=== PATIENT | male | born 1935 | race Caucasian/White ===

== ENCOUNTER → 2016-12-13 | Outpatient (CLI) | payer OTHER ==
[~2016-12-13] MED LIST: ACETAMINOPHEN PO; ALDACTAZIDE PO; AMLODIPINE BES2.5 MG PO; ASPIRIN PO; ASPIRIN81 M2 PO; ASPIRINEC PO; ATENOLOL PO; ATENOLOL50 MG PO; COUMADIN2.5 MG PO; COUMADIN5 MG PO; DIOVAN PO; DIOVAN160 MG PO; FLOMAX0.4 M1; FLOMAX0.4 M1 PO; GABAPENTIN300 MG PO; GRALISE300 MG PO; IMDUR PO; IMDUR-ER30 MG PO; IMDUR30 MG; IMDUR30 MG PO; ISORDIL PO; ISORDIL40 MG PO; KEFLEX PO; LANSOPRAZOLE30 M2 PO; LIPITOR PO; LIPITOR20 MG PO; LIPITOR40 MG PO; LOMOTIL WHITE2.5 MG PO; LOPERAMIDE HCL2 M1 PO; METOPROLOL SUCC25 MG PO; METOPROLOL TAR25 MG PO; MYRBETRIQ25 MG PO; NEURONTIN300 MG PO; NITROGLYGERIN0.4 MG SL; NITROGYLCERIN SUBLINGUAL; NORCO1 TAB 10/3 PO; NORVASC PO; NORVASC2.5 MG PO; OMEPRAZOLE40 M1 PO; OMEPRAZOLE40 MG PO; PHENERGAN25 MG PO; PLAVIX PO; PRILOSEC PO; PRILOSEC40 MG; PROTONIX PO; RANEXA500 MG PO; TESSALON PERLE100 M1 PO
--- NOTE | ~2016-12-13 | EKG ---
PATIENT: SUDHEER DAN UNIT #: [id number] Ventricular Rate: 52 BPM Atrial Rate: 52 BPM P-R Interval: 258 ms QRS Duration: 86 ms Q-T Interval: 476 ms QTC Calculation(Bezet): 442 ms P [place]: 76 degrees Calculated R [place]: 28 degrees Calculated T [place]: 57 degrees Diagnosis Line: Sinus bradycardia with 1st degree A-V block Diagnosis Line: Otherwise normal ECG Diagnosis Line: When compared with ECG of 13-JUL-2016 07:20, Diagnosis Line: ME interval has increased Diagnosis Line: Confirmed by SIDDHARTH KOENIG MD ([id number]) on 12/13/2016 Diagnosis Line: 11:32:47 PM INTERPRETING MD: ARYA QUIÑONEZ
[2016-12-13 07:33] LABS: HEMATOCRIT 42.3 % (38.0-50.0); MEAN CELL VOLUME 88.5 FL (83-96); MEAN CORPUSCULAR HEMOGLOBIN 29.3 PG (28-34); MEAN CORPUSCULAR HGB CONC 33.1 g/dL (30-36); MEAN PLATELET VOLUME 7.5 FL (6.5-11.5); RED BLOOD COUNT 4.78 X10e (3.90-5.60); RED CELL DISTRIBUTION WIDTH 14.3 % (11.0-15.5); WHITE BLOOD COUNT 8.2 X10e3 (4.0-10.5)
[2016-12-13 07:53] LABS: INR 1.3; PARTIAL THROMBOPLASTIN TIME 28.5 SECONDS (23.5-31.3)
[2016-12-13 07:57] LABS: PROTHROMBIN TIME (PATIENT) 13.9 SECONDS (9.6-11.5)
[2016-12-13 08:07] LABS: GLOM FILT RATE Estimated 70.8 mL/min (>60); POTASSIUM 4.3 mmol/L (3.5-5.1)
== END | disposition home or self-care (01) ==
LOC: CCVL 07:04
PROVIDERS: Internal Medicine Cardiovascular Disease
DX: I25.110 Atherosclerotic heart disease of native coronary artery with unstable angina pectoris (principal); I70.0 Atherosclerosis of aorta; I48.91 Unspecified atrial fibrillation; I25.2 Old myocardial infarction; Z79.01 Long term (current) use of anticoagulants; Z95.5 Presence of coronary angioplasty implant and graft; Z88.5 Allergy status to narcotic agent
CPT/HCPCS: 36415; 80048; 85027; 85347; 85610; 85730; 93005; C1769; C1887; C1894; J1644; J2250; J3010

== ENCOUNTER → 2017-01-02 | Day surgery (SDC) | payer OTHER ==
--- NOTE | ~2017-01-02 | OR ---
Unit #: [id number] #: [id number] Patient: SUDHEER DAN [id number] [address] [address] [id number] O MR#: [id number] NAME: SUDHEER DAN. ROOM: Date of Procedure: 01/02/2017 Admission Date: 01/02/2017 Surgeon: Klever Sierra M.D. : 1935 Attending Physician: Klever Sierra M.D. Primary Care Physician: Yuki Mary M.D. OPERATIVE REPORT PRIMARY CARE PHYSICIAN Yuki Mary M.D. PREOPERATIVE DIAGNOSES The patient was admitted to [facility] with upper gastrointestinal hemorrhage from a gastric ulcer. He is feeling much better. He has come for evaluation of ulcer. PROCEDURES PERFORMED Upper gastrointestinal endoscopy and biopsy. POSTOPERATIVE DIAGNOSES 1. The patient had previously seen antral large gastric ulcers that have almost completely healed, there being minimal residual of the latter. 2. Mild prepyloric antral erosive gastritis. 3. Rest of the examination up to third part of duodenum was normal. Biopsy was obtained from the antrum for CLOtest. RECOMMENDATIONS The patient was advised to continue on b.i.d. PPI therapy for another 3 months and then reduce to once a day. SEDATION USED MAC. DESCRIPTION OF PROCEDURE Following detailed explanation of potential risks and complications of an upper endoscopy, namely perforation, bleeding, and complication related to sedation, the patient was brought to GI lab and laid in the left lateral decubitus position. Lubricated tip of the Olympus video upper endoscope was passed through the bite block into the proximal esophagus under direct vision. The entire esophageal mucosa was examined and appeared normal. Z-line was nicely demarcated, there being no esophagitis or hiatus hernia. The scope was then advanced into the gastric cavity and the latter was insufflated. Mucosa of the fundus, body, and antrum was examined and the patient was noted to have prepyloric antral erythema erosions as well as a small gastric ulcer, which was nearly healed with grayish-white ulcer base. Pylorus was intubated with visualization of normal duodenal bulb and second and third part of the duodenum. Upon withdrawal and retroflexion, incisura, cardia, and greater curve was examined and biopsy was obtained from the antrum for CLOtest. The scope was then withdrawn in the distal esophagus. The entire esophageal mucosa was examined all the Unit #: [id number] #: [id number] Patient: SUDHEER DAN way up to pharynx. No additional findings were noted. The patient tolerated the procedure without any postprocedure complications. Dictated by... Rebecca Madera TD: 01/02/2017 21:12 JOB #: [id number] OPERATIVE REPORT Page 1 of 1 X Klever Sierra MD X PROCEDURE OPERATIVE NOTE
== END | disposition home or self-care (01) ==
LOC: COPS 11:56
DX: K25.9 Gastric ulcer, unspecified as acute or chronic, without hemorrhage or perforation (principal); K29.60 Other gastritis without bleeding; K21.9 Gastro-esophageal reflux disease without esophagitis; I25.118 Atherosclerotic heart disease of native coronary artery with other forms of angina pectoris; Z95.5 Presence of coronary angioplasty implant and graft; Z88.5 Allergy status to narcotic agent
CPT/HCPCS: 87077

== ENCOUNTER 2017-04-15 06:59 | Observation (INO) | payer OTHER ==
--- NOTE | ~2017-04-15 | OR ---
Unit #: [id number] #: [id number] Patient: SUDHEER DAN [id number] [address] [address] [id number] I MR#: [id number] NAME: SUDHEER DAN. ROOM: 574 Date of Procedure: 04/16/2017 Admission Date: 04/15/2017 Surgeon: Klever Sierra M.D. : 1935 Attending Physician: Paulina Holloway M.D. Primary Care Physician: Yuki Mary M.D. OPERATIVE REPORT PRIMARY CARE PHYSICIAN Yuki Mary M.D. PREOPERATIVE DIAGNOSES 1. History of melena. 2. Mild drop in hemoglobin and elevated BUN and creatinine ratio. The patient has previous history of bleeding gastric ulcers which were documented to be healed. PROCEDURES PERFORMED Upper gastrointestinal endoscopy and biopsy. POSTOPERATIVE DIAGNOSES 1. Moderate distal ulcerative esophagitis. 2. Moderate prepyloric antral diffuse antral gastritis with multiple erosions in this area. 3. Focal patchy erosive moderate duodenitis involving the duodenal bulb. 4. Rest of the examination up to third part of duodenum was normal. No active bleeding nor any potential source of blood loss was seen. A biopsy was obtained from the antrum for CLOtest. RECOMMENDATIONS 1. The patient can be started on regular diet. 2. We will monitor his hemoglobin for the next 24 hours. 3. Discontinue IV Protonix after current bag is finished. 4. Start on Protonix 40 mg p.o. b.i.d. SEDATION USED MAC. DESCRIPTION OF PROCEDURE Following detailed explanation of the potential risks and complications of an upper endoscopy, namely perforation, bleeding, and complications related to sedation, the patient was brought to GI lab and laid in the left lateral decubitus position. Lubricated tip of the Olympus video upper endoscope was passed through the bite-block into the proximal esophagus under direct vision. Entire esophageal mucosa was examined. The patient was noted to have [id number] confluent ulcerative esophagitis. The scope was then advanced to the gastric cavity and the latter was insufflated. Mucosa of the fundus, body, and antrum was examined. The patient was noted to have diffuse prepyloric antral erosive gastritis, which was moderate in severity with extensive erosions in this Unit #: [id number] #: [id number] Patient: SUDHEER DAN area. However, no tammie ulcers were seen. Pylorus was intubated with visualization of the duodenal bulb, the latter was noted to have focal patchy erosive moderate duodenitis. Second and third part of duodenum were normal. Upon withdrawal and retroflexion, incisura, cardia, and greater curve examined and no additional findings noted. The scope was withdrawn in the distal esophagus. The entire esophageal mucosa was examined all the way up to pharynx. No additional findings noted. No potential source of blood loss was seen in the entire upper gastrointestinal tract. The patient tolerated the procedure without any postprocedure complications. Dictated by... Rebecca Madera/katrin TD: 04/16/2017 10:46 JOB #: [id number] Deanna Jacobo M.D. OPERATIVE REPORT Page 1 of 1 X Klever Sierra MD X PROCEDURE OPERATIVE NOTE
--- NOTE | ~2017-04-15 | HP ---
Unit #: [id number] #: [id number] Patient: SUDHEER DAN [id number] [facility]. [place], [place] [address] [id number] I MR#: [id number] NAME: SUDHEER DAN. ROOM: 78340 Age: 81 Sex: M Admission Date: 04/15/2017 : 1935 Attending Physician: Deanna Jacobo M.D. Primary Care Physician: Yuki Mary M.D. HISTORY AND PHYSICAL CHIEF COMPLAINT Bloody stools. HPI The patient is an 81-year-old male with past medical history of peptic ulcer disease, Whitney-Pascal tear, chronic anticoagulation, coronary artery disease, peripheral arterial disease, hypertension, hyperlipidemia, and BPH who presented to the emergency department for evaluation of the above. The patient states that he has had 2-3 days of abdominal pain. It was initially in the lower abdomen, but is now in the mid and upper abdomen. He describes it as "cramping." There are no exacerbating or alleviating factors. He states that it is similar to when he has had ulcers in the past. He states that he has had nausea, but no vomiting. Today, he started having black stool. He reports three black stools within the past 24 hours. He states that he is typically constipated. In the emergency department, initial pulse and blood pressure were 76 and 144/60, respectively. Hemoglobin is 14.6. INR is 2. He was given 80 mg of Protonix followed by Protonix drip at 8 mg per hour. He also received 4 mg of Zofran. He is being admitted to [facility] for evaluation and further treatment. Of note, the patient had EGD on January 02, 2017, that showed almost completely healed gastric ulcers with mild antral erosive gastritis. PAST MEDICAL HISTORY 1. Admission to [facility] in October or November of 2016 for GI bleed (no records). 2. Admission to [facility] April 21-2012, for chest pain. He underwent stress test that showed no obvious stress-induced ischemia with an ejection fraction of 48%. 3. History of peptic ulcer disease with last EGD as noted above. 4. History of Whitney-Pascal tear. 5. Coronary artery disease. The patient has a history of multiple angioplasties and stents. His last cardiac catheterization was January 01, 2013, and showed patent mid LAD stent with mid RCA with 40% to 50% stenosis and normal left circumflex. Ejection fraction was 60% at that time. He sees Dr. Coronel. 6. Hypertension. 7. Hyperlipidemia. 8. Peripheral arterial disease, status post carotid endarterectomy. 9. BPH. 10. Chronic anticoagulation with Coumadin. Family states that he is on Unit #: [id number] #: [id number] Patient: SUDHEER DAN Coumadin due to coronary artery disease as well as peripheral arterial disease. He denies any history of DVT or PE. No history of atrial fibrillation. PAST SURGICAL HISTORY 1. Appendectomy. 2. Hernia repair. 3. Transurethral resection of the prostate. 4. Sinus surgery. 5. Cardiac stent placement. 6. Carotid endarterectomy. 7. Penile implant. 8. Cataract surgery. SOCIAL HISTORY The patient lives with his . He is a former smoker; he quit in 1969. He reports occasional alcohol use. He walks with a cane. His code status is a full code. FAMILY HISTORY Notable for his dad having psychiatric issues. He has siblings with coronary artery disease. ALLERGIES Codeine. HOME MEDICATIONS 1. Aspirin 81 mg daily. 2. Norvasc 2.5 mg daily. 3. Metoprolol 25 mg daily. 4. Coumadin 2.5 mg daily. 5. Neurontin 300 mg t.i.d. REVIEW OF SYSTEMS A complete review of systems is negative, except as indicated in the HPI. DIAGNOSTIC TESTS CARDIOVASCULAR: EKG shows sinus rhythm with first degree AV block and rate of 69 beats per minute. LABORATORY: Troponin is less than 0.05. Complete blood count notable for white blood cell count of 12.1 and hemoglobin and hematocrit 14.6 and 44.7, respectively. INR is 2. Comprehensive metabolic panel notable for BUN and creatinine of 42 and 0.9, respectively. Lipase is 49. PHYSICAL EXAMINATION VITAL SIGNS: Temperature is 97.7, pulse 76, respirations 18, blood pressure 144/60, and oxygen saturation is 100% on room air. GENERAL: The patient is a very pleasant, male who is awake and alert in no acute distress. HEENT: The head is atraumatic. Mucous membranes are moist. NECK: Supple. Trachea is midline. CARDIOVASCULAR: Regular rate and rhythm. LUNGS: Clear to auscultation bilaterally with no increased work of breathing. ABDOMEN: Soft. He is mildly tender to palpation in the epigastric area. Bowel sounds are present in all four quadrants. RECTAL: Exam was heme-positive per ER documentation. Unit #: [id number] #: [id number] Patient: SUDHEER DAN EXTREMITIES: Nontender with no pedal edema. NEURO: The patient is awake and alert. He follows commands. PSYCH: Mood and affect are normal. The patient is cooperative. SKIN: Skin of examined areas is warm and dry. ASSESSMENT The patient is an 81-year-old male with: 1. Gastrointestinal bleed. The patient has a history of peptic ulcer disease as well as Whitney-Pascal tear. His most recent EGD was in December of 2016 and showed a healing gastric ulcer. Hemoglobin is 14.6 today. He received 80 mg of Protonix and is currently on Protonix drip at 8 mg per hour. 2. Abdominal pain. 3. Chronic anticoagulation with Coumadin. The patient's INR is 2. 4. Coronary artery disease with cardiac catheterization, report as noted above. He is status post stent placement. 5. Peripheral arterial disease, status post carotid endarterectomy. 6. Hypertension. 7. Hyperlipidemia. 8. Benign prostatic hypertrophy, status post transurethral resection of the prostate. 9. Former smoker. PLAN 1. Admit for observation to intermediate level. 2. Normal saline at 25 mL an hour. 3. NPO for possible endoscopy. 4. Protonix drip at 8 mg per hour. 5. Hemoglobin and hematocrit q.6 hours. Will plan to transfuse for hemoglobin less than 8 due to history of coronary artery disease. 6. P.R.N. Zofran. 7. Vitamin K 2.5 mg p.o. x1. 8. Consult Dr. Sierra regarding GI bleed. 9. Hold Coumadin. 10. Hold aspirin. 11. Serial cardiac enzymes. 12. Repeat labs in the morning including INR. 13. SCDs for DVT prophylaxis. 14. Additional workup and consultants based on above. 15. Regarding code status, patient is a full code. Dictated by Deanna Jacobo M.D. Yunior TD: 04/15/2017 13:02 JOB #: [id number] Unit #: [id number] #: [id number] Patient: SUDHEER DAN HISTORY AND PHYSICAL Page 1 of 1 X Deanna Jacobo MD HISTORY AND PHYSICAL
--- NOTE | ~2017-04-15 | DS ---
Unit #: [id number] #: [id number] Patient: SUDHEER DAN [id number] [address] [address] [id number] I MR#: [id number] NAME: SUDHEER DAN. ROOM: 574 Age: 81 Sex: M Admission Date: 04/15/2017 : 1935 Discharge Date: Attending Physician: Paulina Holloway M.D. Primary Care Physician: Yuki Mary M.D. DISCHARGE SUMMARY DISCHARGE DIAGNOSES 1. Gastrointestinal bleed, lower. 2. Anemia, secondary to acute blood loss. 3. Moderate distal ulcerative esophagitis. 4. Moderate prepyloric diffuse antral gastritis with multiple erosions. Moderate duodenitis. These findings present on EGD. 5. History of gastrointestinal bleed. 6. Chronic systolic heart failure present on admission. 7. Peptic ulcer disease. 8. History of Whitney's tear. 9. Coronary artery disease with multiple angioplasties and stents in the past. 10. History of peripheral arterial disease, status post carotid endarterectomy. 11. Chronic anticoagulation on Coumadin. According to the family, it is for peripheral artery disease. No history of pulmonary embolus, deep venous thrombosis, or atrial fibrillation. 12. Hypertension. 13. Hyperlipidemia. 14. Benign prostatic hypertrophy. CONSULTATION Dr. Klever Sierra. PROCEDURE Patient had EGD which shows moderate distal ulcerative esophagitis, moderate prepyloric diffuse antral gastritis, patchy erosive moderate duodenitis. DIAGNOSTIC STUDIES LABORATORY: WBC 7.3, hemoglobin 10.6, platelet count 215,000. Sodium 138, potassium 4.2, creatinine 0.8. Troponins negative. ALLERGIES Codeine. DISCHARGE MEDICATIONS 1. Hold Coumadin until colonoscopy and until okay with Dr. Klever Sierra. 2. Neurontin 300 p.o. three times daily. 3. Norvasc 2.5 daily. 4. Metoprolol 25 daily. 5. Hold aspirin until seen by Dr. Sierra and until after colonoscopy. 6. Protonix 40 p.o. b.i.d. Unit #: [id number] #: [id number] Patient: SUDHEER DAN HOSPITALIZATION COURSE An 81 year old admitted because of GI bleed. Lower GI bleed: Patient is seen by Dr. Sierra. Patient had EGD which shows above findings. Patient was started on IV Protonix, currently on p.o. Protonix. Patient will have colonoscopy as an outpatient in three to four days' time because he is on Coumadin which has been on hold. Severe gastritis and duodenitis: The patient was given IV Protonix. Continue p.o. Protonix. Anemia secondary to acute blood loss: No transfusion needed. Hemoglobin 10.6 and stable. He did have dark-colored stools yesterday. Patient needs outpatient colonoscopy by Dr. Klever Sierra. Hypertension: Mildly elevated. Continue with Norvasc. DISPOSITION Discharge home. FOLLOWUP 1. Follow with family physician in two weeks' time. 2. Follow with Dr. Klever Sierra in three days' time for colonoscopy. 3. Hold Coumadin until colonoscopy. Dictated by... Rebecca Bennett TD: 04/17/2017 14:11 JOB #: [id number] DISCHARGE SUMMARY Page 1 of 1 X Paulina Holloway MD X DISCHARGE SUMMARY
--- NOTE | ~2017-04-15 | EKG ---
PATIENT: SUDHEER DAN UNIT #: [id number] Ventricular Rate: 69 BPM Atrial Rate: 69 BPM P-R Interval: 220 ms QRS Duration: 86 ms Q-T Interval: 416 ms QTC Calculation(Bezet): 445 ms P [place]: 16 degrees Calculated T [place]: 52 degrees Diagnosis Line: Sinus rhythm with 1st degree A-V block Diagnosis Line: Voltage criteria for left ventricular hypertrophy Diagnosis Line: Inferior infarct , age undetermined Diagnosis Line: Abnormal ECG Diagnosis Line: When compared with ECG of 13-DEC-2016 08:25, Diagnosis Line: Inferior infarct is now Present Diagnosis Line: Confirmed by SIDDHARTH KOENIG MD ([id number]) on 04/18/2017 Diagnosis Line: 6:55:21 AM INTERPRETING MD: ARYA QUIÑONEZ
--- NOTE | ~2017-04-15 | CO ---
Unit #: [id number] #: [id number] Patient: SUDHEER BISHOP [id number] [address] [address] [id number] I MR#: [id number] NAME: SUDHEER BISHOP. ROOM: 574 Age: 81 Sex: M Admission Date: 04/15/2017 : 1935 Attending Physician: Paulina Holloway M.D. Primary Care Physician: Yuki Mary M.D. Consultation Date: 04/16/2017 CONSULTATION REPORT PRIMARY CARE PHYSICIAN Dr. Yuki Mary. REASON FOR CONSULTATION GI bleed. HISTORY OF PRESENT ILLNESS Mr. Bishop is a very pleasant 81-year-old white gentleman who lives at home with his . The patient is physically quite active and does mostly outer chores and lives alone at home. He has presented with history of left upper quadrant abdominal pain, which is felt to be cramping. In addition, he also mentions history of black tarry stools at least 2 or 3 times each day for the past couple days. He had 3 black tarry stools in the past 24 hours. He normally is quite constipated. In the emergency room, he was having normal vital signs and normal hemoglobin and INR of 2.0. He had completely healed ulcers in 12/2016. PAST MEDICAL HISTORY Significant for; 1. History of GI bleed from ulcers. 2. History of peptic ulcer disease. 3. History of Whitney-Pascal tear. 4. History of coronary artery disease. 5. Multiple angioplasties and stent placements. 6. History of hypertension. 7. Hyperlipidemia. 8. Peripheral artery disease status post carotid endarterectomy. 9. Benign prostatic hypertrophy. 10. The patient has chronic anticoagulation with Coumadin. PAST SURGICAL HISTORY Previous surgeries have included; 1. Herniorrhaphy. 2. Appendectomy. 3. TURP. 4. Sinus surgery. 5. Coronary stent placements. 6. Carotid endarterectomy. 7. Penile implant. 8. Cataract surgery. MEDICATIONS AT HOME Included; Unit #: [id number] #: [id number] Patient: SUDHEER BISHOP 1. Coumadin. 2. Neurontin. 3. Metoprolol. 4. Norvasc. 5. Aspirin. ALLERGIES He is allergic to codeine. FAMILY HISTORY Significant for father having psychiatric issues and siblings with coronary artery disease. SOCIAL HISTORY He lives at home with his . An ex-smoker, quit about more than 40 years ago. Occasionally drinks alcohol. Walks around with a cane. REVIEW OF SYSTEMS Detailed review of system does not reveal any recent weight loss. No history of fever, chills, or rigors. No history of headache, seizures, chest pain, or syncope. No history of cough, expectoration, or hemoptysis. No history of dysuria, hematuria, or pyuria. No history of focal seizures or extremity weakness. Rest of the review of organ systems is unremarkable. PHYSICAL EXAMINATION GENERAL: He is awake, alert, and oriented, appears comfortable. VITAL SIGNS: Stable with a temperature of 98.6, pulse is 65 per minute and regular, respirations 20, and blood pressure is 131/56. He weighs 180 pounds, which is close to his baseline weight. HEENT: He has mild pallor. There have been no icterus, lymphadenopathy, or peripheral edema. CARDIOVASCULAR: Normal heart sounds. No murmurs on auscultation. LUNGS: Normal breath sounds. Good air entry. ABDOMEN: Soft and nontender. Liver and spleen are not palpable. Bowel sounds normal. DIAGNOSTIC STUDIES LABORATORY RESULTS: Shows an admission hemoglobin of 12.2, his baseline hemoglobin was 14 to 15, today hemoglobin is 11.9. His BUN and creatinine ratio is slightly elevated at 42 and 0.9. Blood glucose is normal. Albumin is 3.0. LFTs are also normal. INR is 1.9. CLINICAL IMPRESSION The patient with history of melena and possible upper gastrointestinal bleed. He also has an upper abdominal pain, which might be due to recurrent duodenal or gastric ulcer. An upper GI endoscopy is therefore warranted, to be scheduled later today. The pros and cons of procedure, potential risks, and complications were discussed the patient and was reassured. Thank you for asking me to see this pleasant gentleman. I appreciate the consult. Dictated by.Mitzi. Rebecca Madera/katrin Unit #: [id number] #: [id number] Patient: SUDHEER BISHOP TD: 04/16/2017 10:14 JOB #: [id number] CONSULTATION REPORT Page 1 of 1 X Klever Sierra MD CONSULTATION REPORT
[~2017-04-15 06:59] MED LIST changes: -ASPIRIN81 M2 PO; -COUMADIN2.5 MG PO; -NORVASC2.5 MG PO
[2017-04-15 07:56] LABS: POC - CKMB 2.3 ng/mL (0.0-7.9); POC - TROPONIN <0.05 ng/mL (<=0.05)
[2017-04-15 08:14] LABS: BASOPHIL# 0.1 X10e3 (0-0.3); BASOPHIL% 0.5 % (0-2.5); EOSINOPHIL# 0.2 X10e3 (0-0.7); EOSINOPHIL% 1.9 % (0.0-7.0); HEMATOCRIT 44.7 % (38.0-50.0); HEMOGLOBIN 14.6 gm/dL (13.0-16.0); LYMPHOCYTE# 2.3 X10e3 (1.0-3.5); LYMPHOCYTE% 19.3 % (17.0-45.0); MEAN CELL VOLUME 87.1 FL (83-96); MEAN CORPUSCULAR HEMOGLOBIN 28.4 PG (28-34); MEAN CORPUSCULAR HGB CONC 32.6 g/dL (30-36); MEAN PLATELET VOLUME 7.9 FL (6.5-11.5); MONOCYTE# 1.3 X10e3 (0-1.0); MONOCYTE% 10.7 % (3.0-12.0); NEUTROPHIL# 8.2 X10e3 (1.5-7.1); NEUTROPHIL% 67.6 % (40-75); PLATELET COUNT 304 X10e3 (140-420); RED BLOOD COUNT 5.14 X10e (3.90-5.60); RED CELL DISTRIBUTION WIDTH 16.7 % (11.0-15.5); WHITE BLOOD COUNT 12.1 X10e3 (4.0-10.5)
[2017-04-15 08:15] LABS: DIFF IND NO
[2017-04-15] MEDS ORDERED: ASPIRIN81 M2 PO (08:15)
[2017-04-15] MEDS ORDERED: NORVASC2.5 MG PO (08:15)
[2017-04-15] MEDS ORDERED: NEURONTIN300 MG PO (08:16)
[2017-04-15] MEDS ORDERED: METOPROLOL TAR25 MG PO (08:16)
[2017-04-15] MEDS ORDERED: COUMADIN2.5 MG PO (08:16)
[2017-04-15 08:31] LABS: PARTIAL THROMBOPLASTIN TIME 32.3 SECONDS (23.5-31.3)
[2017-04-15 08:32] LABS: PROTHROMBIN TIME (PATIENT) 21.8 SECONDS (10.0-11.7)
[2017-04-15 08:41] LABS: ALBUMIN SERUM 3.8 g/dL (3.5-5.0); BILIRUBIN, DIRECT 0.1 mg/dL (0.0-0.2); BILIRUBIN,TOTAL 1.1 mg/dL (0.2-2.0); BUN/CREATININE RATIO 46.66; CALCIUM SERUM 9.2 mg/dL (8.4-10.2); CREATININE SERUM 0.9 mg/dL (0.6-1.4); GLOM FILT RATE Estimated 80.4 mL/min (>60); POTASSIUM 4.5 mmol/L (3.5-5.1); PROTEIN TOTAL SERUM 7.4 g/dL (6.0-8.3)
[2017-04-15 16:39] LABS: HEMATOCRIT 38.4 % (38.0-50.0)
[2017-04-15 16:40] LABS: HEMOGLOBIN 12.2 gm/dL (13.0-16.0)
[2017-04-15 17:14] LABS: CK TOTAL 48 IU/L (36-174)
[2017-04-16 05:20] LABS: BASOPHIL% 0.3 % (0-2.5); EOSINOPHIL# 0.3 X10e3 (0-0.7); EOSINOPHIL% 3.1 % (0.0-7.0); HEMATOCRIT 36.2 % (38.0-50.0); HEMOGLOBIN 11.9 gm/dL (13.0-16.0); LYMPHOCYTE# 2.2 X10e3 (1.0-3.5); LYMPHOCYTE% 25.3 % (17.0-45.0); MEAN CELL VOLUME 86.9 FL (83-96); MEAN CORPUSCULAR HEMOGLOBIN 28.6 PG (28-34); MEAN CORPUSCULAR HGB CONC 32.9 g/dL (30-36); MONOCYTE# 0.7 X10e3 (0-1.0); MONOCYTE% 8.8 % (3.0-12.0); NEUTROPHIL# 5.3 X10e3 (1.5-7.1); NEUTROPHIL% 62.5 % (40-75); PLATELET COUNT 230 X10e3 (140-420); RED BLOOD COUNT 4.17 X10e (3.90-5.60); RED CELL DISTRIBUTION WIDTH 17.2 % (11.0-15.5); WHITE BLOOD COUNT 8.5 X10e3 (4.0-10.5)
[2017-04-16 05:21] LABS: DIFF IND NO
[2017-04-16 05:30] LABS: INR 1.9; PROTHROMBIN TIME (PATIENT) 20.9 SECONDS (10.0-11.7)
[2017-04-16 06:13] LABS: BILIRUBIN,TOTAL 0.8 mg/dL (0.2-2.0); BUN/CREATININE RATIO 43.75; CALCIUM SERUM 8.3 mg/dL (8.4-10.2); CREATININE SERUM 0.8 mg/dL (0.6-1.4); GLOM FILT RATE Estimated 84.4 mL/min (>60); POTASSIUM 4.1 mmol/L (3.5-5.1); PROTEIN TOTAL SERUM 5.7 g/dL (6.0-8.3)
[2017-04-17 07:25] LABS: BASOPHIL% 0.4 % (0-2.5); EOSINOPHIL# 0.3 X10e3 (0-0.7); EOSINOPHIL% 4.1 % (0.0-7.0); HEMOGLOBIN 10.6 gm/dL (13.0-16.0); LYMPHOCYTE# 1.7 X10e3 (1.0-3.5); LYMPHOCYTE% 22.8 % (17.0-45.0); MEAN CELL VOLUME 87.3 FL (83-96); MEAN CORPUSCULAR HEMOGLOBIN 28.9 PG (28-34); MEAN CORPUSCULAR HGB CONC 33.1 g/dL (30-36); MEAN PLATELET VOLUME 7.7 FL (6.5-11.5); MONOCYTE# 0.6 X10e3 (0-1.0); MONOCYTE% 8.7 % (3.0-12.0); NEUTROPHIL# 4.7 X10e3 (1.5-7.1); PLATELET COUNT 215 X10e3 (140-420); RED BLOOD COUNT 3.67 X10e (3.90-5.60); RED CELL DISTRIBUTION WIDTH 17.3 % (11.0-15.5); WHITE BLOOD COUNT 7.3 X10e3 (4.0-10.5)
[2017-04-17 07:49] LABS: CALCIUM SERUM 8.4 mg/dL (8.4-10.2); CREATININE SERUM 0.8 mg/dL (0.6-1.4); GLOM FILT RATE Estimated 84.4 mL/min (>60); POTASSIUM 4.2 mmol/L (3.5-5.1)
[2017-04-17 07:51] LABS: DIFF IND NO
[2017-04-17] MEDS ORDERED: PROTONIX PO (14:29)
[2017-04-24] MEDS ORDERED: COUMADIN2.5 MG PO (13:05)
== END 2017-04-17 15:08 | disposition home or self-care (01) ==
LOC: CED 06:59 → CEDOF 09:05 → CED 09:45 → CEDOF 09:45 → C5C 14:15 → CEDOF 14:15 → C5C 04-16 07:19
PROVIDERS: Emergency Medicine; Family Medicine; Internal Medicine
DX: K22.11 Ulcer of esophagus with bleeding (principal); K29.81 Duodenitis with bleeding; K25.4 Chronic or unspecified gastric ulcer with hemorrhage; D62 Acute posthemorrhagic anemia; I25.10 Atherosclerotic heart disease of native coronary artery without angina pectoris; I11.0 Hypertensive heart disease with heart failure; I50.22 Chronic systolic (congestive) heart failure; E78.5 Hyperlipidemia, unspecified; N40.0 Benign prostatic hyperplasia without lower urinary tract symptoms; M19.90 Unspecified osteoarthritis, unspecified site; Z87.891 Personal history of nicotine dependence; Z86.73 Personal history of transient ischemic attack (TIA), and cerebral infarction without residual deficits; Z88.5 Allergy status to narcotic agent; Z79.01 Long term (current) use of anticoagulants; Z79.82 Long term (current) use of aspirin; Z79.899 Other long term (current) drug therapy; Z98.890 Other specified postprocedural states; Z95.5 Presence of coronary angioplasty implant and graft; Z98.42 Cataract extraction status, left eye; Z90.49 Acquired absence of other specified parts of digestive tract
CPT/HCPCS: 36415; 80048; 80053; 80076; 82550; 82553; 83690; 84484; 85014; 85018; 85025; 85610; 85730; 86850; 86900; 86901; 87077; 93005; 96361; 96374; 96375; 96376; 99284; C9113; G0378; J2250; J2405; J3010

== ENCOUNTER → 2017-04-24 | Day surgery (SDC) | payer OTHER ==
[~2017-04-24] MED LIST changes: +ASPIRIN81 M2 PO; +COUMADIN2.5 MG PO; +NORVASC2.5 MG PO
--- NOTE | ~2017-04-24 | OR ---
Unit #: [id number] #: [id number] Patient: SUDHEER DAN [id number] [address] [place], [place] [address] [id number] O MR#: [id number] NAME: SUDHEER DAN. ROOM: Date of Procedure: 04/24/2017 Admission Date: 04/24/2017 Surgeon: Klever Sierra M.D. : 1935 Attending Physician: Klever Sierra M.D. Primary Care Physician: Yuki Mary M.D. OPERATIVE REPORT PREOPERATIVE DIAGNOSIS Anemia of gastrointestinal bleed. PROCEDURES PERFORMED Colonoscopy up to cecum and terminal ileum. POSTOPERATIVE DIAGNOSES The patient had moderate pandiverticulosis, otherwise examination was normal up to cecum and terminal ileum. The quality of the prep was good. No potential source of blood loss was seen in the entire colonic lumen. Specifically, no angiodysplasias or polyps were seen. The patient also did not have any hemorrhoids. RECOMMENDATIONS 1. No further intervention is indicated. 2. The patient's hemoglobin today is 11.1. The patient was therefore reassured and discharged. SEDATION USED MAC. DESCRIPTION OF PROCEDURE Following detailed explanation of potential risks and complications of a colonoscopy, namely perforation, bleeding, and complications related to sedation, the patient was brought to GI lab and laid in the left lateral decubitus position. A digital rectal examination was performed, which was normal. Lubricated tip of the Olympus video colonoscope was inserted through the anus and advanced under direct vision. The scope was advanced and passed up to sigmoid into descending colon. Multiple medium-sized diverticula were seen in this area. The scope tip was then navigated all the way up to cecum with visualization of the ileocecal valve and the appendiceal orifice. Preparation was excellent with good visualization and photodocumentation was obtained. Last several inches of the terminal ileum also visualized after intubation of the ileocecal valve and appeared normal. Successive segments of the colonic mucosa were examined upon withdrawal and appeared unremarkable. There being no polyps, mass lesions, or AVMs. Other than the moderate pandiverticulosis, no other abnormalities noted. The patient did not have any hemorrhoids at anal verge. He tolerated the procedure without any postprocedure complications. Dictated by... Unit #: [id number] #: [id number] Patient: DANSUDHEER M.D. AK/modl TD: 04/24/2017 18:42 JOB #: [id number] OPERATIVE REPORT Page 1 of 1 X Klever Sierra MD PROCEDURE OPERATIVE NOTE
[2017-04-24 15:23] LABS: BASOPHIL% 0.5 % (0-2.5); EOSINOPHIL# 0.2 X10e3 (0-0.7); EOSINOPHIL% 2.8 % (0.0-7.0); HEMATOCRIT 33.6 % (38.0-50.0); HEMOGLOBIN 11.1 gm/dL (13.0-16.0); LYMPHOCYTE# 1.8 X10e3 (1.0-3.5); LYMPHOCYTE% 23.4 % (17.0-45.0); MEAN CELL VOLUME 86.4 FL (83-96); MEAN CORPUSCULAR HEMOGLOBIN 28.5 PG (28-34); MONOCYTE% 13.2 % (3.0-12.0); NEUTROPHIL# 4.7 X10e3 (1.5-7.1); NEUTROPHIL% 60.1 % (40-75); PLATELET COUNT 279 X10e3 (140-420); RED BLOOD COUNT 3.88 X10e (3.90-5.60); RED CELL DISTRIBUTION WIDTH 16.5 % (11.0-15.5); WHITE BLOOD COUNT 7.8 X10e3 (4.0-10.5)
[2017-04-24 15:24] LABS: DIFF IND NO
== END | disposition home or self-care (01) ==
LOC: COPS 12:04
PROVIDERS: Internal Medicine Gastroenterology
DX: D50.0 Iron deficiency anemia secondary to blood loss (chronic) (principal); K92.2 Gastrointestinal hemorrhage, unspecified; K57.30 Diverticulosis of large intestine without perforation or abscess without bleeding; I25.119 Atherosclerotic heart disease of native coronary artery with unspecified angina pectoris; K21.9 Gastro-esophageal reflux disease without esophagitis; Z90.49 Acquired absence of other specified parts of digestive tract; Z95.5 Presence of coronary angioplasty implant and graft; Z88.6 Allergy status to analgesic agent
CPT/HCPCS: 85025

== ENCOUNTER → 2017-05-17 | Outpatient (CLI) | payer OTHER ==
--- NOTE | ~2017-05-17 | MR112 ---
[facility] A Service of [facility] & [facility] RADIOLOGY TEXT RESULTS PATIENT: SUDHEER DAN LOCATION: [facility] : 37 UNIT #: [id number] AGE: [address]: Jose Tran II, MD SEX: M ORDER DR: [id number] [place] [id number] O MR#: [id number] Acc #: [id number] NAME: SUDHEER DAN : 1935 SEX: M STUDY DATE/TIME: 05/17/2017 11:09 UNIT: [facility] ROOM: STUDY DESCRIPTION: MR Lumbar WWo Contrast Attending Physician: Jose Tran II., M.D. Referring Physician: Jose Tran II., M.D. Ordering Physician: Jose Tran II., M.D. Primary Care Physician: Yuki Mary M.D. MRI CENTER REPORT This report is preliminary unless electronic signature is present. EXAM MRI of the lumbar spine with and without contrast dated 05/17/2017 COMPARISON MRI of the lumbar spine without contrast dated 04/13/2016 HISTORY Low back pain with right-sided radiculopathy for years. Left-sided radiculopathy at times. Symptoms are progressively worsening. TECHNIQUE Multisequence multiplanar imaging of the lumbar spine was obtained with and without contrast. GFR measured greater than 60. 16 mL of MultiHance was administered intravenously. FINDINGS There is loss of the T12 vertebral body height due to inferior endplate compression and developing Schmorl's node in the mid aspect of the T12 vertebral body. There is about 60-65% stenosis seen without any significant edema. It is chronic-appearing. Fatty endplate changes are present. The lumbar vertebral bodies are age appropriate. No acute injury. Degenerative disc disease is noted throughout the visualized thoracolumbar spine. Conus terminates at L1-2. Signal of conus and cauda equina are grossly unremarkable. Pre and paravertebral soft tissues do not demonstrate any significant abnormality. T12-L1: Disc osteophyte complex with mild bilateral facet hypertrophic changes. No canal stenosis. Mild right neural foraminal narrowing. Stable. L1-2: Disc osteophyte complex which is asymmetrically prominent in the left foraminal to extraforaminal region with mild inferior left neural foraminal narrowing. Mild bilateral facet hypertrophic changes are noted without canal stenosis. Stable. [facility]. [facility] A Service of [facility] & [facility] RADIOLOGY TEXT RESULTS PATIENT: SUDHEER DAN LOCATION: [facility] : 37 UNIT #: [id number] AGE: [address]: Jose Tran II, MD SEX: M ORDER DR: L2-3, L3-4: Mild disc bulge with minimal bilateral facet change. No canal stenosis or neural foraminal narrowing. Stable. L4-5: Concentric disc bulge with severe bilateral facet hypertrophic changes with joint fluid. Suspicious tiny central protrusion and mild inferior bilateral neural foraminal narrowing particularly in the right with mild mass effect on the lateral aspect of the thecal sac. Stable. L5-S1: Disc osteophyte complex which is asymmetrically prominent in the right foraminal to extraforaminal region suggestive of superimposed broad-based protrusion. Moderate right facet hypertrophic changes noted with a less than 1 cm increased T2-signal lesions noted within the posterior aspect of the right facet joint suggestive of synovial cyst or inflammatory tissue. Mild right neural foraminal narrowing is seen. No canal stenosis. Stable. There is a tiny less than 1 cm renal cyst in the anterolateral aspect of the superior right kidney. Postcontrast sequences do not demonstrate enhancing lesions in the conus or cauda equina. IMPRESSION 1. Given the differences in slice selection, there is no significant interval worsening. 2. Inferior endplate compression chronic deformity with Schmorl's node is redemonstrated at T12. 3. Conus and cauda equina are unremarkable. Dictated by... Eloy Taylor M.D. THIS IS AN ELECTRONICALLY VERIFIED REPORT Eloy Taylor M.D. at 05/18/2017 6:39 PM CPR/to TD: 05/18/2017 17:39 JOB #: [id number] MRI CENTER REPORT Page 1 of 1
[2017-05-17 11:15] LABS: POC - CREATININE 0.97 mg/dL (0.64-1.27); POC - GFR >60.0 mL/min (>60)
== END | disposition home or self-care (01) ==
LOC: SMRI 05-11 13:00
PROVIDERS: Psychiatry & Neurology Neurology
DX: M43.8X4 Other specified deforming dorsopathies, thoracic region (principal)
CPT/HCPCS: 72158; 82565; A9581